=== PATIENT | male | born 1930 | race Caucasian/White ===

== ENCOUNTER 2017-09-21 16:01 | Inpatient (IN) | payer MEDICARE ==
[2017-09-21 16:38] LABS: #Eosinphils 0.1 thou/uL (0.0-0.7); #Lymphocytes 1.3 thou/uL (1.20-3.40); #Monocytes 0.9 thou/uL (0.11-0.59); #Neutrophils 10.1 thou/uL (1.40-6.50); %Basophils 0.1 % (0.0-1.0); %Eosinophils 0.9 % (0.0-10.0); %Lymphocytes 10.1 % (21.0-51.0); %Monocytes 7.5 % (0.0-10.0); %Neutrophils 81.4 % (42.0-75.0); Hemoglobin 11.3 g/dL (14.0-18.0); Mean Corpuscular HGB CONC 32.4 g/dL (32.0-36.0); Mean Corpuscular Hemoglobin 33.2 pg (27.0-31.0); Mean Platelet Volume 6.8 fL (7.4-10.4); Platelet Count 149 thou/uL (130-400); RBC Distribution Width 12.6 % (11.5-14.5); White Blood Cell (WBC) Count 12.4 thou/uL (4.8-10.8)
[2017-09-21 16:44] LABS: INR-International Normal Ratio 1.1; PTT 28.9 SEC (22.9-36.1); Prothrombin Time 13.9 SEC (12.0-14.7)
--- NOTE | 2017-09-21 16:55 | RAD ---
PORTABLE AP CHEST RADIOGRAPH: Date: 09-21-17 History: Three separate episodes of chest pain. History of cardiac valve replacement. Comparison: 08-08-15 FINDINGS: Post-surgical changes related to median sternotomy are noted. The cardiac silhouette is magnified by projection. Pulmonary vasculature is within normal limits. There are increased linear densities at th e right lung base, probably related to mild scarring and chronic lung changes. Lungs are otherwise cl ear. Vascular calcifications are seen in the thoracic aorta. No other interval change. IMPRESSION: 1. No acute cardiopulmonary process. 2. Chronic lung changes. POS: [facility]
[2017-09-21 16:59] LABS: ALT (SGPT) 19 U/L (8-55); AST (SGOT) 20 U/L (5-34); Albumin 3.3 g/dL (3.4-4.8); Alkaline Phosphatase 71 U/L (40-150); Anion Gap 13 mmol/L (10-20); BUN (Urea Nitrogen) 37 mg/dL (8.4-25.7); Bilirubin, Total 0.5 mg/dL (0.2-1.2); CK (CPK) 93 U/L (30-200); Calc. Creatinine Clearance 0 mL/min (70-130); Calcium 8.5 mg/dL (7.8-10.44); Carbon Dioxide 20 mmol/L (23-31); Chloride 105 mmol/L (98-107); Estimated GFR-MDRD 59; Globulin 2.5 g/dL (2.4-3.5); Glucose 147 mg/dL (83-110); Lipase 21 U/L (8-78); Potassium 4.8 mmol/L (3.5-5.1); Protein, Total 5.8 g/dL (5.8-8.1); Sodium 133 mmol/L (136-145)
[2017-09-21 17:03] LABS: CKMB 4.9 ng/mL (0-6.6); Troponin I 0.092 ng/mL (< 0.028)
[2017-09-21] MEDS ORDERED: Enoxaparin Sodium 80 MG/0.8 ML SYRINGE ONE (17:17)
--- NOTE | 2017-09-21 18:45 | PDOC.EVN ---
Event Note - Event Note Event Note: [id number] h& p dictated 1. CHEST PAIN 2. HTN 3. H/O HPL Plan: see orders
[2017-09-21] MEDS ORDERED: Acetaminophen 325 MG TAB PO PRN (19:41)
[2017-09-21 20:30] LABS: Troponin I 0.112 ng/mL (< 0.028)
--- NOTE | 2017-09-21 21:11 | HP ---
DATE OF ADMISSION: 09/21/2017 CHIEF COMPLAINT: Chest pain. HISTORY OF PRESENT ILLNESS: The patient is an 87-year-old male with past medical history of hyperten gaby, hyperlipidemia, history of remote aortic valve replacement, now came today complaining of chest pain. The patient said he was getting the trash out and then while he was moving his trash, he star andriy having chest pain. Chest pain is substernal, pressure kind of pain, mild in intensity, associate d with sweating. Denies any nausea, denies any vomiting, denies any dyspnea. Symptoms persisted, so he went and sat on the chair, symptoms resolved. Again, when he started exerting, he got symptoms a gain. It happened twice like that so he came to the ER. Currently, denies any pain, denies any feve r, denies any chills, denies any cough, denies sputum production. PAST MEDICAL HISTORY: As per HPI. PAST SURGICAL HISTORY: Aortic valve replacement. SOCIAL HISTORY: Denies smoking, denies alcohol, denies any drugs. FAMILY HISTORY: Positive for heart problems. REVIEW OF SYSTEMS: Constitutional: Denies any fever, denies any chills. Eyes: Vision problems. E ars: Positive for hearing aid. Neck: Denies any neck pain. Cardiovascular System: Positive for c hest pain. Respiratory System: Denies any cough, denies sputum production. Gastrointestinal: Hans es nausea, denies vomiting. Musculoskeletal: Denies any joint deformities. Integumentary: Denies any rash. All other review of systems is reviewed and is negative. PHYSICAL EXAMINATION: CONSTITUTIONAL/VITAL SIGNS: At the time of H&P performed, blood pressure is 98/68, heart rate 59, pu lse ox 94%. GENERAL: The patient appears comfortable. Anterior nares patent. NECK: Supple, no JVD. EARS: Positive for hearing aid. CARDIOVASCULAR: S1, S2 present. Regular rate and rhythm. Positive for murmur, no rubs, no gallops. RESPIRATORY SYSTEM: No wheezing, no rhonchi. Breath sounds bilaterally. GASTROINTESTINAL: Abdomen is soft, nontender, no guarding, no organomegaly, no masses felt. MUSCULOSKELETAL: No edema. INTEGUMENTARY: No rashes seen. CRANIAL NERVE SYSTEM: Cranial nerves intact. Follows commands. Speech clear. Strength intact. PSYCHIATRIC: Mood is calm. LABORATORY DATA: At the time of H&P performed, sodium 133, potassium 4.8, chloride 105, CO2 of 20, B UN of 37, creatinine 1.17. Troponin 0.092. Calcium 8.5, AST 20, ALT 19, alkaline phosphatase 71, CK 93, albumin 3.3, globulin 2.5. Lipase 21. IMAGING: Chest x-ray no acute disease. ASSESSMENT AND PLAN: The patient is an 87-year-old male. 1. Angina plus abnormal cardiac enzymes. ED physician did already give a dose of Lovenox. We will monitor the patient closely. Plan to check serial cardiac enzymes. Plan to consult Cardiology as an outpatient. 2. History of hypertension. Monitor blood pressures, continue home blood pressure meds. 3. History of hyperlipidemia. Plan to start the patient on a statin. 4. History of possible aortic valve replacement. Plan to place the patient in telemetry. Monitor h eart rate closely. 5. First-degree atrioventricular block plus bradycardia. Monitor heart rate closely. Plan is to pl [place] the patient on telemetry. Case was discussed in detail with the patient.
[2017-09-21] MEDS: Nitroglycerin 2% Ointment 1 INCH/1 GM Packet TOP SCH (22:14)
[2017-09-21] MEDS: Sodium Chloride 0.9% 1,000 ML IV SCH (22:14)
[2017-09-21 22:28] VITALS: BMI 25.2
[2017-09-21 23:39] LABS: Troponin I 0.102 ng/mL (< 0.028)
[2017-09-22] MEDS: Nitroglycerin 2% Ointment 1 INCH/1 GM Packet TOP SCH ×3 (05:38→20:40)
[2017-09-22] MEDS: Aspirin 325 MG TAB PO SCH (08:53)
[2017-09-22] MEDS ORDERED: Prevnar 13-Val Conj/PF 0.5 ML SYRINGE IM ONE (09:00)
[2017-09-22] MEDS ORDERED: Non-Formulary Item 1 EACH (Cetirizine Hcl [Zyrtec] 10 MG) PO PRN (09:38)
--- NOTE | 2017-09-22 09:40 | PDOC.PN ---
- Subjective Encounter Start Date: 09/22/17 Encounter Start Time: 10:00 Subjective: No further chest pain/pressure. No other complaints. - Objective MAR Reviewed: Yes Vital Signs & Weight: Vital Signs (12 hours) Temp Pulse Resp BP Pulse Ox 09/22/17 04:00 97.3 F L 64 15 92/50 L 98 09/22/17 00:00 97.7 F 69 19 90/51 L 95 09/21/17 21:55 97.5 F L 68 20 97 09/21/17 21:45 97.5 F L 20 104/60 97 Weight Weight 168 lb 6.4 oz I&O: 09/21/17 09/22/17 09/23/17 06:59 06:59 06:59 Intake Total 615 Output Total 1000 Balance -385 Result Diagrams: 09/21/17 16:28 09/21/17 16:28 Phys Exam - Physical Examination Constitutional: NAD HEENT: moist MMs Respiratory: no wheezing, no rales, no rhonchi Cardiovascular: RRR, no significant murmur Gastrointestinal: soft, positive bowel sounds Neurological: non-focal, moves all 4 limbs Psychiatric: normal affect, A&O x 3 Dx/Plan (1) Chest pain, rule out acute myocardial infarction Code(s): R07.9 - CHEST PAIN, UNSPECIFIED Status: Acute Comment: indeterminate troponins, Dr. Calzada consulted (2) Hypertension Code(s): I10 - ESSENTIAL (PRIMARY) HYPERTENSION Status: Chronic Qualifiers: Hypertension type: essential hypertension Qualified Code(s): I10 - Essential (primary) hypertension Comment: running low in hospital, hold Lisinopril for now (3) Hyperlipidemia Code(s): E78.5 - HYPERLIPIDEMIA, UNSPECIFIED Status: Chronic Qualifiers: Hyperlipidemia type: unspecified Qualified Code(s): E78.5 - Hyperlipidemia , unspecified Comment: Resume home Statin (4) Hx of aortic valve replacement Code(s): Z95.2 - PRESENCE OF PROSTHETIC HEART VALVE Status: Chronic - Plan cont current plan of care, DVT proph w/lovenox discussed code status with patient, he is FULL CODE. His -: would be his medical decision maker should he be incapacitated. * . - Discharge Day Encounter end time: 10:30
[2017-09-22] MEDS ORDERED: Enoxaparin Sodium 40 MG/0.4 ML SYRINGE SC SCH (09:45)
[2017-09-22] MEDS ORDERED: Propofol 200 MG/20 ML VIAL ONE (13:06)
[2017-09-22] MEDS ORDERED: Lidocaine 1% PF 5 ML VIAL ONE (13:06)
[2017-09-22] MEDS ORDERED: Diprivan 20 ML ONE (13:08)
--- NOTE | 2017-09-22 13:13 | CON ---
DATE OF SERVICE: 09/22/2017 HISTORY: Jose Luis Andino is an unfortunate 87-year-old gentleman who presents with exertional chest discomfort. The patient has a long cardiac history. In 2017,he apparently underwent coronary bypass graft surgery x3 with aortic valve replacement. The patient states he had subsequently been doing well until approximately a month ago he stopped taking his aspirin. He started developing dyspnea on exertion. On the day of admission, the patient presented with chest discomfort. On three occasions he was doing moderate physical exertion and suddenly developed chest pain, which lasted approximately 5 minutes and resolved. The patient denies having any present chest discomfort. PAST MEDICAL HISTORY: 1. Aortic valve replacement. 2. History of coronary bypass surgery. 3. Hypertension. 4. Dyslipidemia. PAST SURGICAL HISTORY: Aortic valve replacement. SOCIAL HISTORY: Nonsmoker. MEDICATIONS: Lisinopril 5 daily, Lipitor 10 daily, potassium 99 mEq daily, Pepcid 20 daily, and Proscar 5 daily. REVIEW OF SYSTEMS: Unremarkable. No history of bright red blood per rectum, easy bruising or hematuria, PHYSICAL EXAMINATION: GENERAL: This is an elderly gentleman in no acute distress. Blood pressure was 92/50. NECK: Neck showed no jugular venous distention. LUNGS: Clear to auscultation. HEART: Regular rate and rhythm, normal S1, S2 with a 3/6 systolic murmur that radiated to the carotids. ABDOMEN: Nondistended. EXTREMITIES: Showed trace edema. SKIN: Warm and dry. NEUROLOGIC: Nonfocal. VASCULAR: Radial pulses 2+. LABORATORY: Sodium 133, potassium 4.8, chloride 105, bicarbonate 20, BUN 37, creatinine 1.17, glucose 147. Troponin was 0.10. His white blood cell count 12.4, hemoglobin 11.3, hematocrit 34.8 and his platelets were 149. His EKG revealed him to have normal sinus rhythm with a first degree AV block, nonspecific intraventricular conduction delay. His echocardiogram revealed a severe decrease in left ventricular systolic function with a 100 mm gradient across the aortic valve. IMPRESSION: 1. New onset exertional angina. 2. History of an aortic prosthetic valve. 3. History of coronary bypass surgery. 4. Hypertension. 5. Dyslipidemia. 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 He is not in congestive heart failure, but has developed angina. He also has a marked decrease in left ventricular systolic function. We will proceed with a HENRY to evaluate the prosthetic valve. The patient will need further evaluation and possible repeat aortic valve replacement. We will follow this patient with you through his hospitalization. STEFANIA
--- NOTE | 2017-09-22 16:43 | ECHO ---
INDICATION: 87-year-old gentleman with aortic valve stenosis. DESCRIPTION OF PROCEDURE: The patient taken to the PACU, the patient was sedated by anesthesiology. Transesophageal probe was placed in the distal esophagus and stomach. Echo images were obtained. FINDINGS: 1. Severe decrease in left ventricular systolic function. 2. The left ventricle is markedly dilated. 3. Mild left atrial enlargement. 4. Moderate mitral regurgitation. 5. Mild tricuspid regurgitation. 6. Bioprosthetic aortic valve leaflets were not well visualized, but there appears to be a fused left coronary and noncoronary cusps. 7. Severe aortic stenosis. 8. Atherosclerotic debris in the descending aorta. IMPRESSION: Malfunctioning bioprosthetic valve with an apparent fused cusp with severe aortic stenosis. MTDD
[2017-09-22] MEDS: Sodium Chloride 0.9% 1,000 ML IV SCH (18:47)
[2017-09-22] MEDS: Ascorbic Acid 500 mg Chewable Tablet PO SCH (20:39)
[2017-09-22] MEDS: Famotidine 20 MG TAB PO SCH (20:39)
[2017-09-22] MEDS: Calcium Carbonate + Vit D 1 TAB PO SCH (20:39)
[2017-09-22] MEDS ORDERED: Mirtazapine 15 MG TAB PO SCH (21:00)
[2017-09-22] MEDS ORDERED: CHONDRO SU A PO SCH (21:00)
[2017-09-22] MEDS ORDERED: Doxepin HCl 25 MG CAP PO SCH (21:00)
[2017-09-22] MEDS ORDERED: Tamsulosin HCl 0.4 MG CAP PO SCH (21:00)
[2017-09-22] MEDS ORDERED: Atorvastatin Calcium 10 MG TAB PO SCH (21:00)
[2017-09-22] MEDS ORDERED: GLUC SU PO SCH (21:00)
[2017-09-22] MEDS ORDERED: [UNRECOGNIZED DRUG - OTHER] PO SCH (21:00)
[2017-09-22] MEDS ORDERED: VIT C PO SCH (21:00)
[2017-09-23] MEDS: Nitroglycerin 2% Ointment 1 INCH/1 GM Packet TOP SCH (06:00)
[2017-09-23 07:51] VITALS: BP 103/61; TEMP 96.9
[2017-09-23] MEDS ORDERED: Chloraseptic Spray 180 ml Bottle PO PRN (07:54)
[2017-09-23] MEDS ORDERED: Zolpidem Tartrate 5 MG TAB PO PRN (07:54)
[2017-09-23] MEDS ORDERED: Mag-Al 1200 mg/1200 mg/30 ML UDCUP PO PRN (07:54)
[2017-09-23] MEDS ORDERED: HYDROcodone/Acetaminophen 5/325 mg Tablet PO PRN (07:54)
[2017-09-23] MEDS ORDERED: Senokot 8.6 MG TAB PO PRN (07:54)
[2017-09-23] MEDS ORDERED: Diabetic Tussin 200 MG/10 ML UDCUP PO PRN (07:54)
[2017-09-23] MEDS ORDERED: Ondansetron ODT 4 MG TAB PO PRN (07:54)
[2017-09-23] MEDS ORDERED: hydrALAZINE 20 MG/ML VIAL SLOW IVP PRN (07:54)
[2017-09-23] MEDS ORDERED: Nitroglycerin 0.4 MG TAB (25 Tab Bottle) SL PRN (07:54)
[2017-09-23] MEDS ORDERED: Ondansetron HCl/PF 4 MG/2 ML Vial IVP PRN (07:54)
[2017-09-23] MEDS ORDERED: Sodium Chloride 0.65% Nasal 44 ML BOT EA NARE PRN (07:54)
[2017-09-23] MEDS ORDERED: Milk Of Magnesia 30 ML UDCUP PO PRN (07:54)
[2017-09-23] MEDS ORDERED: Artificial Tears 18 DROP/0.9 ML EA EYE PRN (07:54)
[2017-09-23] MEDS ORDERED: Eucerin (Mineral Oil/Petrolatum,White) 30 gm Jar TOP PRN (07:54)
[2017-09-23 08:35] LABS: #Eosinphils 0.2 thou/uL (0.0-0.7); #Lymphocytes 1.6 thou/uL (1.20-3.40); #Monocytes 0.7 thou/uL (0.11-0.59); #Neutrophils 6.9 thou/uL (1.40-6.50); %Basophils 0.3 % (0.0-1.0); %Lymphocytes 17.1 % (21.0-51.0); %Monocytes 7.7 % (0.0-10.0); %Neutrophils 72.8 % (42.0-75.0); Hemoglobin 11.9 g/dL (14.0-18.0); Mean Corpuscular HGB CONC 32.7 g/dL (32.0-36.0); Mean Platelet Volume 7.1 fL (7.4-10.4); Platelet Count 144 thou/uL (130-400); RBC Distribution Width 12.9 % (11.5-14.5); Red Blood Cell (RBC) Count 3.49 mill/uL (4.70-6.10); White Blood Cell (WBC) Count 9.5 thou/uL (4.8-10.8)
[2017-09-23 08:54] LABS: ALT (SGPT) 16 U/L (8-55); AST (SGOT) 16 U/L (5-34); Alkaline Phosphatase 58 U/L (40-150); Anion Gap 12 mmol/L (10-20); BUN (Urea Nitrogen) 21 mg/dL (8.4-25.7); Bilirubin, Total 0.7 mg/dL (0.2-1.2); Calc. Creatinine Clearance 61 mL/min (70-130); Calcium 8.5 mg/dL (7.8-10.44); Carbon Dioxide 21 mmol/L (23-31); Cardiac Risk 3.6 (Less than 4.5); Chloride 107 mmol/L (98-107); Cholesterol 129 mg/dl (< 200 Desired); Estimated GFR-MDRD 77; Globulin 2.5 g/dL (2.4-3.5); Glucose 124 mg/dL (83-110); HDL Cholesterol 36 mg/dL (>60 Neg Risk); LDL Cholesterol, Calculated 78 mg/dL; Potassium 4.5 mmol/L (3.5-5.1); Protein, Total 5.5 g/dL (5.8-8.1); Sodium 135 mmol/L (136-145); Triglycerides 73 mg/dL (Less than 150)
[2017-09-23] MEDS ORDERED: Folic Acid 1 MG TAB PO SCH (09:00)
[2017-09-23] MEDS ORDERED: Lisinopril 10 MG TAB PO SCH (09:00)
[2017-09-23] MEDS ORDERED: Loratadine 10 MG TAB PO SCH (09:00)
[2017-09-23] MEDS ORDERED: Enoxaparin Sodium 40 MG/0.4 ML SYRINGE SC SCH (09:00)
[2017-09-23] MEDS ORDERED: Cyanocobalamin (Vitamin B-12) 1,000 MCG TAB PO SCH (09:00)
[2017-09-23] MEDS ORDERED: Fish Oil 1,000 MG CAP PO SCH (09:00)
[2017-09-23] MEDS ORDERED: Finasteride 5 MG TAB PO SCH (09:00)
[2017-09-23] MEDS: Calcium Carbonate + Vit D 1 TAB PO SCH (09:35)
[2017-09-23] MEDS: Famotidine 20 MG TAB PO SCH (09:36)
[2017-09-23] MEDS: Aspirin 325 MG TAB PO SCH (09:36)
[2017-09-23] MEDS: Ascorbic Acid 500 mg Chewable Tablet PO SCH (09:38)
--- NOTE | 2017-09-23 14:05 | DIS ---
PRIMARY CARE PHYSICIAN: [facility] call admission. DATE OF ADMISSION: 09/21/2017. DATE OF DISCHARGE: 09/23/2017 DISCHARGE DISPOSITION: Home. PRIMARY DISCHARGE DIAGNOSES: 1. Chest pain, ruled out acute coronary syndrome. 2. Elevated troponin due to demand ischemia (non-ST elevation myocardial infarction type 2). 3. 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 SECONDARY DISCHARGE DIAGNOSES: Moderate mitral regurgitation, history of bioprosthetic aortic valve, benign enlargement of prostate, coronary artery disease, history of coronary artery bypass grafting, chronic systolic and diastolic heart failure, dyslipidemia, hypertension. PRIMARY PROCEDURE/OPERATION: Transesophageal echocardiography was performed by Dr. Mi and nikkie martínez with prosthetic valve dysfunction. Echocardiography showed EF 10% to 15%, moderate MR, and moderat e TR. Chest x-ray showed cardiomegaly. SIGNIFICANT LABORATORY DATA: WBC 9.5, hemoglobin 11.9, MCV 104, platelets 144. INR 1.1. Sodium 135 , potassium 4.5, BUN 21, creatinine 0.93, carbon dioxide 21, glucose 124, calcium 8.5. AST 16, ALT 1 6, alkaline phosphatase 58, albumin 3.0. BNP 3053. Troponin I is 0.102. LDL 78, HDL 36, lipase 21. DISCHARGE MEDICATIONS: 1. Folic acid 1 mg p.o. daily. 2. Vitamin B12 at 1000 mcg p.o. daily, advised to take from [id number] basis. 3. Coreg 1.5625 mg p.o. b.i.d. (dose reduced). 4. Lisinopril 1.25 mg p.o. daily (dose reduced). Continue following medications: 1. Vitamin C 1000 mg p.o. b.i.d. 2. Lipitor 10 mg p.o. at bedtime. 3. Calcium with magnesium one tablet p.o. b.i.d. 4. Cetirizine 10 mg p.o. daily. 5. Sinequan 25 mg p.o. at bedtime. 6. Pepcid 20 mg p.o. b.i.d. 7. Nereyda 180 mg p.o. daily. 8. Proscar 5 mg p.o. daily. 9. Glucosamine chondroitin sulfate 1 capsule p.o. b.i.d. 10. Remeron 15 mg p.o. at bedtime. 11. Fish oil 1 capsule p.o. b.i.d. 12. Potassium 99 mg p.o. b.i.d. 13. Flomax 0.4 mg p.o. daily. CONTRAINDICATIONS: None. CODE STATUS: FULL CODE. INPATIENT CONSULTANTS: Dr. Mi was following while in hospital. TEST RESULTS PENDING ON DISCHARGE: None. ALLERGIES: No known drug allergy. DISCHARGE PLAN: Post hospital, the patient will follow up with Dr. Jaquan Dickerson at 11:00 a.m. this morning. HOSPITAL COURSE: An 87-year-old male, who was admitted by Dr. Guerrier, please see his H&P for furth er details. This patient has a history of coronary artery disease with coronary artery bypass grafti ng and a bioprosthetic aortic valve. He has increasing shortness of breath and chest discomfort. Hi s chest pain description was atypical. We did serial cardiac enzyme, and his troponin was slightly e levated and that was related with demand ischemia. During this admission, we did echocardiography, and his transthoracic echocardiography showed EF 10% to 15%, and he had abnormal functioning bioprosthetic aortic valve. He also has moderate mitral regu rgitation and tricuspid regurgitation. Dr. Mi was consulted, and he did a transesophageal echo cardiography that also confirmed bioprosthetic aortic valve malfunction. 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 He was not having any o rthopnea, PND, or leg swelling. Today, I reviewed his entire chart. I spoke with Dr. Mi, and Dr. Mi recommended to disch arge him, and he will follow up with Dr. Jaquan Dickerson as an outpatient basis after discharge, we mad e a followup appointment with Dr. Dickerson, and further care of this patient will be decided by his car diologist. Today, the patient is seen and examined. All review of systems reviewed with him and negative. PHYSICAL EXAMINATION: VITAL SIGNS: Currently, temperature 96.9, pulse 79, respiratory rate 16, saturation 95% on room air, blood pressure 103/61, weight 166 pounds. GENERAL: The patient is currently alert, oriented, no acute distress. HEAD: Normocephalic, atraumatic. EYES: Pupils round, reactive to light. Extraocular muscle intact. ENT: Oropharynx within normal limits. Moist mucous membranes. No oral lesions. No pharyngeal eryt michelle. No exudate. NECK: Supple, no JVD, no thyromegaly, no carotid bruit. LUNGS: Clear to auscultation without any rhonchi or rales. CARDIAC: S1, S2 appears regular. Systolic murmur present at aortic area as well as apex. No gallop . ABDOMEN: Soft and benign without any tenderness. EXTREMITIES: No edema. No calf tenderness. NEUROLOGICAL: Nonfocal examination. During this admission, because of low blood pressure, we reduced dose of Coreg and lisinopril as abov e. Total time spent on discharge day more than 30 minutes.
== END 2017-09-23 10:40 | disposition home or self-care (01) | DRG 281 ==
LOC: ERS 16:01 → 2NO 17:22
PROVIDERS: ADMIT Internal Medicine; ATTEND Internal Medicine
PROC: B24BZZ4 Ultrasonography of Heart with Aorta, Transesophageal (ICD-10-PCS; principal; 2017-09-22)
DX: I21.A1 Myocardial infarction type 2 (principal); I50.42 Chronic combined systolic (congestive) and diastolic (congestive) heart failure; D53.9 Nutritional anemia, unspecified; I08.3 Combined rheumatic disorders of mitral, aortic and tricuspid valves; I11.0 Hypertensive heart disease with heart failure; R00.1 Bradycardia, unspecified; E78.5 Hyperlipidemia, unspecified; I10 Essential (primary) hypertension; I44.0 Atrioventricular block, first degree; I25.5 Ischemic cardiomyopathy; N40.0 Benign prostatic hyperplasia without lower urinary tract symptoms; Z95.2 Presence of prosthetic heart valve; I25.10 Atherosclerotic heart disease of native coronary artery without angina pectoris; Z95.1 Presence of aortocoronary bypass graft
CPT/HCPCS: 36415; 71045; 80053; 80061; 82553; 83690; 83880; 84484; 85025; 85610; 85730; 92960; 93005; 93306; 93312; 96372; A4216; J1650; J2001; J2704

== ENCOUNTER 2017-09-26 16:31 | Emergency (ER) | payer MEDICARE ==
[2017-09-26 16:51] LABS: Base Excess-Venous -6.2 mmol/L (-30.0-30.0); Bicarbonate (HCO3v) 23.6 mmol/L (1.0-85.0); CO2 Tension (PvCO2) 68.3 mmHg (41.0-51.0); Calcium, Ionized 1.15 mmol/L (1.12-1.32); Hemoglobin - Calc 11.7 g/dL (12.0-18.0); Lactate 4.32 mmol/L (0.50-2.20); O2 Tension (PvO2) 18.6 mmHg (35.0-45.0); Potassium 5.9 mmol/L (3.4-4.7); T. Carbon Dioxide 25.7 mmol/L (1.0-85.0); pH (Venous) 7.147 (7.35-7.45); vO2 Saturation-calc 17.5 % (0.0-100.0)
[2017-09-26] MEDS ORDERED: Sodium Bicarb 50 MEQ/50 ML Abboject 8.4% SYRINGE ONE (17:00)
[2017-09-26] MEDS ORDERED: Calcium Chloride 1 GM/10 ML Abboject SYRINGE ONE (17:00)
[2017-09-26] MEDS ORDERED: EPINEPHrine 1 MG/10 ML Abboject SYRINGE ONE (17:00)
== END 2017-09-26 17:10 | disposition expired ==
LOC: ERS 16:31
DX: I46.9 Cardiac arrest, cause unspecified (principal)
CPT/HCPCS: 31500; 36416; 36556; 82330; 82435; 82565; 82803; 82947; 83605; 84132; 84295; 85014; 92950; 96374; 96375; J0171; J0282